=== PATIENT | female | born 1965 | race American Indian/Alaskan Native ===

== ENCOUNTER 2019-09-11 13:00 | Emergency (ER) | payer MEDICARE ==
[2019-09-11] MEDS ORDERED: traMADol 50 MG TAB PO ONE (14:14)
--- NOTE | 2019-09-11 14:53 | XRay Report ---
LEFT FOOT, 3 VIEWS INDICATION / CLINICAL INFORMATION: foot pain. COMPARISON: None available. FINDINGS: Mild hallux valgus deformity with mild associated degenerative change. No fracture or dislocation. No additional degenerative change. No calcaneal spurring. Fracture does appear to be some mild soft tis rob swelling along the dorsum of the midfoot which is nonspecific. IMPRESSION: 1. Mild dorsal soft tissue swelling of the mid foot region. Please correlate clinically. This is nons pecific radiographically. 2. No fracture OR dislocation. 3. Mild hallux valgus deformity noted. Signer Name: Helena Harmon MD Signed: 09/11/2019 2:49 PM Workstation Name: [id number]
--- NOTE | 2019-09-11 16:20 | Emergency Department Report ---
ED Lower Extremity HPI - General Chief Complaint: Extremity Problem,Nontraumatic Stated Complaint: LEFT FOOT SWELLING Time Seen by Provider: 09/11/19 14:15 Source: patient Mode of arrival: Ambulatory Limitations: No Limitations - History of Present Illness Initial Comments: Patient presents for left dorsal foot pain x3 weeks. Denies fall injury or trauma. However there is swelling and moderate erythema. Patient denies history of gout or arthritis. Patient remains ambulatory with slight disturbance, there is no numbness or deformity. MD Complaint: foot injury Onset/Timin -: week(s) Injury: Foot: Left - Related Data Previous Rx's Medication Instructions Recorded Last Taken Type Naproxen 500 mg PO BID PRN #30 tablet 09/11/19 Unknown Rx Allergies Allergy/AdvReac Type Severity Reaction Status Date / Time No Known Allergies Allergy Unverified 09/11/19 13:06 ED Review of Systems ROS: Stated complaint: LEFT FOOT SWELLING Other details as noted in HPI Constitutional: denies: chills, fever Eyes: denies: eye pain, eye discharge, vision change ENT: denies: ear pain, throat pain Respiratory: denies: cough, shortness of breath, wheezing Cardiovascular: denies: chest pain, palpitations Endocrine: no symptoms reported Gastrointestinal: denies: abdominal pain, nausea, diarrhea Genitourinary: denies: urgency, dysuria, discharge Musculoskeletal: other (left dorsal foot pain ). denies: back pain, joint swelling, arthralgia Skin: denies: rash, lesions Neurological: denies: headache, weakness, paresthesias Psychiatric: denies: anxiety, depression Hematological/Lymphatic: as per HPI ED Past Medical Hx - Past Medical History Previous Medical History?: Yes Hx Hypertension: Yes - Surgical History Past Surgical History?: No - Social History Smoking Status: Unknown if ever smoked Substance Use Type: None - Medications Home Medications: Home Medications Medication Instructions Recorded Confirmed Last Taken Type Naproxen 500 mg PO BID PRN #30 tablet 09/11/19 Unknown Rx ED Physical Exam - General Limitations: No Limitations General appearance: alert, in no apparent distress - Head Head exam: Present: atraumatic, normocephalic - Eye Eye exam: Present: normal appearance - ENT ENT exam: Present: mucous membranes moist - Neck Neck exam: Present: normal inspection - Respiratory Respiratory exam: Present: normal lung sounds bilaterally. Absent: respiratory distress - Cardiovascular Cardiovascular Exam: Present: regular rate, normal rhythm. Absent: systolic murmur, diastolic murmur, rubs, gallop - GI/Abdominal GI/Abdominal exam: Present: soft, normal bowel sounds - Rectal Rectal exam: Present: deferred - Extremities Exam Extremities exam: Present: full ROM, tenderness (left dorsal foot ), normal capillary refill. Absent: pedal edema, joint swelling, calf tenderness - Expanded Lower Extremity Exam Left Foot/Toe exam: Present: full ROM, tenderness, swelling, erythema. Absent: abrasion, laceration, ecchymosis, deformity, crepidus, dislocation, amputation, puncture wound, foreign body, calcaneal tenderness, tenderness at base of 5th metatarsal, nail avulsion, subungual hematoma Neuro vascular tendon exam: Absent: pulse deficit, motor deficit, sensory deficit, tendon deficit Gait: Positive: observed and limited by pain - Back Exam Back exam: Present: normal inspection, full ROM. Absent: tenderness - Neurological Exam Neurological exam: Present: alert, oriented X3, CN II-XII intact, normal gait, reflexes normal. Absent: motor sensory deficit - Expanded Neurological Exam Expanded Patient oriented to: Present: person, place, time Motor strength exam: RLE: 5, LLE: 5 Best Eye Response (Bon): (4) open spontaneously Best Motor Response (Mosinee): (6) obeys commands Best Verbal Response (Mosinee): (5) oriented [place] Total: 15 - Psychiatric Psychiatric exam: Present: normal affect, normal mood - Skin Skin exam: Present: warm ED Lower Extremity MDM - Radiology Data Radiology results: report reviewed, image reviewed no fracture, mild dorsal foot swelling, mild halux valgus - Medical Decision Making X-ray demonstrates 0 fracture. Mild hallux valgus. Plan NSAIDs follow-up with podiatry in 2 to 3 days patient verbalizes agreement understanding of discharge plan. Patient be DC'd home stable condition at this time. Critical care attestation.: If time is entered above; I have spent that time in minutes in the direct care of this critically ill patient, excluding procedure time. ED Disposition Clinical Impression: Foot sprain Qualifiers: Encounter type: initial encounter Laterality: left Qualified Code(s): S93.602A - Unspecified sprain of left foot, initial encounter Disposition: DC-01 TO HOME OR SELFCARE Is pt being admited?: No Does the pt Need Aspirin: No Condition: Stable Instructions: Foot Sprain (ED) Prescriptions: Naproxen 500 mg PO BID PRN #30 tablet PRN Reason: Pain Referrals: MAXIMINO ROSALES MD [Primary Care Provider] - 3-5 Days Forms: Work/School Release Form(ED) Time of Disposition: 16:25
[2019-09-11] MEDS ORDERED: traMADol 50 MG TAB ONE ×2 (16:22→16:32)
== END 2019-09-11 16:36 | disposition home or self-care (01) ==
LOC: ED 13:00
DX: S93.602A Unspecified sprain of left foot, initial encounter (principal); I10 Essential (primary) hypertension; Z79.899 Other long term (current) drug therapy; X58.XXXA Exposure to other specified factors, initial encounter; Y93.89 Activity, other specified; Y92.89 Other specified places as the place of occurrence of the external cause; Y99.8 Other external cause status

== ENCOUNTER 2020-02-02 12:28 | Emergency (ER) | payer MEDICARE ==
[2020-02-02 13:22] VITALS: BP 157/94
[2020-02-02] MEDS ORDERED: ACETAMINOPHEN 325 MG TAB PO ONE (13:35)
--- NOTE | 2020-02-02 13:35 | Event Note ---
ED Screening Note Date of service: 02/02/20 Time: 13:33 ED Screening Note: 54-year-old -Taj[place] female presents to the emergency room complaining of neck pain head pain and left arm pain with generalized pain everywhere status post fall today at [employer] proximal a little bit after 11. Patient denies any urinary bowel incontinence. She denies any loss of consciousness no nausea no vomiting. This initial assessment/diagnostic orders/clinical plan/treatment(s) is/are subject to change based on patients health status, clinical progression and re- assessment by fellow clinical providers in the ED. Further treatment and workup at subsequent clinical providers discretion. Patient/guardian urged not to elope from the ED as their condition may be serious if not clinically assessed and managed. Initial orders include:
--- NOTE | 2020-02-02 15:31 | Cat Scan Report ---
CT HEAD WITHOUT CONTRAST INDICATION / CLINICAL INFORMATION: fall head injury. TECHNIQUE: Axial imaging performed from the skull apex through the skull base without the use of cont rast. Sagittal and coronal reformatted images. All CT scans at this location are performed using CT dose reduction for ALARA by means of automated exposure control. COMPARISON: None available. FINDINGS: CEREBRAL PARENCHYMA: No acute parenchymal abnormality. Chronic 1.2 cm infarct in the right anterior b bettye ganglia is noted. HEMORRHAGE: None. EXTRA-AXIAL SPACES: Normal in size and morphology for the patient's age. VENTRICULAR SYSTEM: Normal in size and morphology for the patient's age. MIDLINE SHIFT OR HERNIATION: None. CEREBELLUM / BRAINSTEM: No significant abnormality. CALVARIUM: No significant abnormality. ORBITS: Normal as visualized. PARANASAL SINUSES / MASTOID AIR CELLS: Normal as visualized. SOFT TISSUES of HEAD: No significant abnormality. ADDITIONAL FINDINGS: None. IMPRESSION: No acute intracranial abnormality. 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 CT CERVICAL SPINE WITHOUT CONTRAST HISTORY: Neck pain, injury COMPARISON: None TECHNIQUE: CT images of the cervical spine were obtained without contrast. Sagittal and coronal refo rmats were post-processed. CONTRAST: None. FINDINGS: Alignment: Normal. There is mild reversal of the normal cervical lordosis which could be positional o r secondary to muscular spasm. Vertebrae:No significant abnormality. Disc Spaces: Moderate disc space narrowing and marginal spurring is identified at all levels. Facet Joints:No significant abnormality. Craniocervical Junction:No significant abnormality. Prevertebral Soft Tissues:No significant abnormality. Lung Apices: No significant abnormality. Additional Findings: None IMPRESSION: Moderate multilevel cervical spondylosis. No acute injury is identified. Signer Name: Bill Minor Jr, MD Signed: 02/02/2020 3:27 PM Workstation Name: [id number]
--- NOTE | 2020-02-02 15:32 | XRay Report ---
LUMBOSACRAL SPINE 3 VIEWS INDICATION: fall with lower back pain. COMPARISON: None. IMPRESSION: Mild osteopenia is suspected. Normal alignment. No significant discogenic DJD or facet a rthropathy. No acute osseous or soft tissue abnormality. Signer Name: Bill Minor Jr, MD Signed: 02/02/2020 3:28 PM Workstation Name: [id number]
[2020-02-02] MEDS ORDERED: traMADol 50 MG TAB PO ONE (16:25)
[2020-02-02] MEDS ORDERED: CYCLOBENZAPRINE 10 MG TAB PO ONE (16:25)
--- NOTE | 2020-02-02 16:29 | Emergency Department Report ---
ED Fall HPI - General Chief Complaint: Fall Stated Complaint: FALL FROM STANDING POSITION Time Seen by Provider: 02/02/20 16:17 Source: patient, EMS Mode of arrival: Wheelchair Limitations: No Limitations - History of Present Illness Initial Comments: Patient is a 54-year-old -[place] female who comes to the ER status post ground-level fall at the [employer]. She states that she was walking and slipped and fell. She had no prodrome of symptoms. She denies any neurological symptoms. Denies any headache. Denies any chest pain or shortness of breath leading up to the fall. She was in her usual state of health at that time. Patient presents to the ER complaining of generalized pain. She told the triage staff that she had generalized back pain. When she got back to [facility] she added that her left elbow is hurting. Additional imaging has been ordered. 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 denies: numbness, weakness, chest paint, shortness of breath, abdominal pain, hematuria, unable to walk, lightheaded, vertigo, confusion - Related Data Previous Rx's Medication Instructions Recorded Last Taken Type Naproxen 500 mg PO BID PRN #30 tablet 09/11/19 Unknown Rx Cyclobenzaprine [Flexeril] 10 mg PO TID PRN #10 tablet 02/02/20 Unknown Rx Ibuprofen [Motrin] 800 mg PO Q8HR PRN #30 tablet 02/02/20 Unknown Rx Allergies Allergy/AdvReac Type Severity Reaction Status Date / Time No Known Allergies Allergy Unverified 09/11/19 13:06 ED Review of Systems ROS: Stated complaint: FALL FROM STANDING POSITION Other details as noted in HPI Comment: All other systems reviewed and negative ED Past Medical Hx - Past Medical History Previous Medical History?: Yes Hx Hypertension: Yes - Surgical History Past Surgical History?: No - Family History Family history: no significant - Social History Smoking Status: Current Some Day Smoker Substance Use Type: None - Medications Home Medications: Home Medications Medication Instructions Recorded Confirmed Last Taken Type Naproxen 500 mg PO BID PRN #30 tablet 09/11/19 Unknown Rx Cyclobenzaprine [Flexeril] 10 mg PO TID PRN #10 tablet 02/02/20 Unknown Rx Ibuprofen [Motrin] 800 mg PO Q8HR PRN #30 tablet 02/02/20 Unknown Rx ED Physical Exam - General Limitations: No Limitations General appearance: alert, in no apparent distress - Head Head exam: Present: atraumatic, normocephalic - Eye Eye exam: Present: normal appearance, PERRL, EOMI - ENT ENT exam: Present: mucous membranes moist - Neck Neck exam: Present: normal inspection - Respiratory Respiratory exam: Present: normal lung sounds bilaterally. Absent: respiratory distress - Cardiovascular Cardiovascular Exam: Present: regular rate, normal rhythm. Absent: systolic murmur, diastolic murmur, rubs, gallop - GI/Abdominal GI/Abdominal exam: Present: soft, normal bowel sounds - Rectal Rectal exam: Present: deferred - Extremities Exam Extremities exam: Present: full ROM, normal capillary refill, other (co pain with extending left arm). Absent: tenderness - Back Exam Back exam: Present: normal inspection, full ROM. Absent: tenderness - Neurological Exam Neurological exam: Present: alert, oriented X3, CN II-XII intact, normal gait. Absent: abnormal gait, motor sensory deficit, reflexes normal - Expanded Neurological Exam Expanded Patient oriented to: Present: person, place, time Speech: Present: fluid speech Cranial nerves: EOM's Intact: Normal, Gag Reflex: Normal, Facial Sensation: Normal Cerebellar function: Finger to Nose: Normal Upper motor neuron: Pronator Drift: Normal Sensory exam: Upper Extremity Light Touch: Normal, Lower Extremity Light Touch: Normal Motor strength exam: RUE: 5, LUE: 5, RLE: 5, LLE: 5 Best Eye Response (Bon): (4) open spontaneously Best Motor Response (Bon): (6) obeys commands Best Verbal Response (Bon): (5) oriented Bon Total: 15 - Psychiatric Psychiatric exam: Present: normal affect, normal mood. Absent: depressed, agitated - Skin Skin exam: Present: warm, dry, intact, normal color. Absent: rash ED Course Vital Signs 02/02/20 12:43 Temperature 98.0 F Pulse Rate 71 Respiratory 18 Rate Blood Pressure 157/94 O2 Sat by Pulse 100 Oximetry ED Medical Decision Making - Radiology Data Radiology results: report reviewed, image reviewed nap Prior basal ganglia infarct noted as per radiology. - Medical Decision Making Vital Signs 02/02/20 12:43 Temperature 98.0 F Pulse Rate 71 Respiratory 18 Rate Blood Pressure 157/94 O2 Sat by Pulse 100 Oximetry Imaging noted. I have discussed with Dr. Devyn Beebe the CT findings.. Patient had no prodrome of symptoms. She has no prior history of CVA or TIA. Patient does have hypertension for which she does not always take her lisinopril. Patient does have a primary care physician. Patient is very clear and was asked on 2 occasions about her fall. Is a mechani marianela witnessed fall. She had no prodrome of symptoms. She is neurologically intact with no focal deficit in the emergency room. She has been ambulating ambulating without difficulty. I have discussed the incidental finding with the patient. I explained to her that she will need to take an aspirin daily and follow-up with her primary care regarding this CT. On reexam the patient is again neurologically intact with no focal deficit. I have educated the patient that she needs to take her blood pressure medicine daily as instructed by her primary care and that if she is not tolerating the medication she needs to discuss this with the primary care who will make the needed changes. Patient verbalizes an understanding of our discussion. Patient has been medicated for discomfort status post her ground-level mechanical fall. She reports relief with the medication. Patient being discharged home with detailed follow-up instructions including diet, activity, medications and follow-up. She verbalizes understanding. - Differential Diagnosis ro fx v muscle injury sp fall Critical care attestation.: If time is entered above; I have spent that time in minutes in the direct care of this critically ill patient, excluding procedure time. ED Disposition Clinical Impression: Fall, Contusion, Accident due to mechanical fall without injury Disposition: DC-01 TO HOME OR SELFCARE Is pt being admited?: No Does the pt Need Aspirin: No Condition: Stable Additional Instructions: Medications as ordered today. Activity as tolerated. Warm baths and compresses Follow-up with primary care Continue your home medications including your lisinopril and a daily aspirin Low-salt diet. Stay well-hydrated. Please tell your primary care doctor that she can get your medical records from the ER including your CT scan of your head which we have discussed. Prescriptions: Cyclobenzaprine [Flexeril] 10 mg PO TID PRN #10 tablet PRN Reason: Muscle Spasm Ibuprofen [Motrin] 800 mg PO Q8HR PRN #30 tablet PRN Reason: Pain, Moderate (4-6) Referrals: MAXIMINO ROSALES MD [Primary Care Provider] - 3-5 Days Time of Disposition: 16:29
--- NOTE | 2020-02-02 16:49 | XRay Report ---
LEFT ELBOW 3 VIEWS INDICATION / CLINICAL INFORMATION: fall left elbow pain COMPARISON: None available. FINDINGS: BONES / JOINT(S): No acute fracture or subluxation. No significant arthritis. SOFT TISSUES: No significant abnormality. ADDITIONAL FINDINGS: None. Signer Name: Evert Arboleda MD Signed: 02/02/2020 4:45 PM Workstation Name: [id number]
== END 2020-02-02 17:46 | disposition home or self-care (01) ==
LOC: ED 12:28
DX: S00.93XA Contusion of unspecified part of head, initial encounter (principal); I10 Essential (primary) hypertension; F17.200 Nicotine dependence, unspecified, uncomplicated; Z79.1 Long term (current) use of non-steroidal anti-inflammatories (NSAID); Z79.899 Other long term (current) drug therapy; W18.30XA Fall on same level, unspecified, initial encounter; Y93.89 Activity, other specified; Y92.89 Other specified places as the place of occurrence of the external cause; Y99.8 Other external cause status
CPT/HCPCS: 70450; 72100; 72125

== ENCOUNTER 2020-09-09 08:04 | Emergency (ER) | payer MEDICARE ==
--- NOTE | 2020-09-09 09:47 | Emergency Department Report ---
ED General Adult HPI - General Chief complaint: Dyspnea/Respdistress Stated complaint: CONSTANT COUGHING Time Seen by Provider: 09/09/20 09:37 Source: patient Mode of arrival: Ambulatory Limitations: No Limitations - History of Present Illness Initial comments: 54-year-old -[place] female presents to the emergency room complaining of a cough that she has had for 2 weeks. Patient states that she has a history of coughing for almost a year in the past. Patient denies any fever chills or nausea no vomiting no chest pain or shortness of breath. Patient does report she is on lisinopril for her hypertension. Patient states she does have a primary care provider but the doctors in [place] and she has not been able to make her appointment. Onset/Timin -: week(s), year(s) (Ovary a year for chronic cough) Severity scale (0 -10): 8 Consistency: constant Improves with: none Worsens with: none Associated Symptoms: denies other symptoms, cough. denies: diaphoresis, fever/chills Treatments Prior to Arrival: other (OTC cough medications) - Related Data Previous Rx's Medication Instructions Recorded Last Taken Type Naproxen 500 mg PO BID PRN #30 tablet 09/11/19 Unknown Rx Cyclobenzaprine [Flexeril] 10 mg PO TID PRN #10 tablet 02/02/20 Unknown Rx Ibuprofen [Motrin] 800 mg PO Q8HR PRN #30 tablet 02/02/20 Unknown Rx amLODIPine 5 mg PO DAILY 1 Days #30 tab 09/09/20 Unknown Rx Allergies Allergy/AdvReac Type Severity Reaction Status Date / Time No Known Allergies Allergy Unverified 09/11/19 13:06 ED Review of Systems ROS: Stated complaint: CONSTANT COUGHING Other details as noted in HPI Comment: All other systems reviewed and negative ED Past Medical Hx - Past Medical History Previous Medical History?: Yes Hx Hypertension: Yes - Surgical History Past Surgical History?: No - Social History Smoking Status: Current Some Day Smoker Substance Use Type: None - Medications Home Medications: Home Medications Medication Instructions Recorded Confirmed Last Taken Type Naproxen 500 mg PO BID PRN #30 tablet 09/11/19 Unknown Rx Cyclobenzaprine [Flexeril] 10 mg PO TID PRN #10 tablet 02/02/20 Unknown Rx Ibuprofen [Motrin] 800 mg PO Q8HR PRN #30 tablet 02/02/20 Unknown Rx amLODIPine 5 mg PO DAILY 1 Days #30 tab 09/09/20 Unknown Rx ED Physical Exam - General Limitations: No Limitations General appearance: alert, in no apparent distress - Head Head exam: Present: atraumatic, normocephalic - Eye Eye exam: Present: normal appearance - ENT ENT exam: Present: mucous membranes dry - Neck Neck exam: Present: normal inspection, full ROM - Respiratory Respiratory exam: Present: normal lung sounds bilaterally. Absent: respiratory distress, wheezes, rales, rhonchi, chest wall tenderness, accessory muscle use - Cardiovascular Cardiovascular Exam: Present: regular rate, normal rhythm - Extremities Exam Extremities exam: Present: normal inspection, full ROM - Back Exam Back exam: Present: normal inspection - Neurological Exam Neurological exam: Present: alert, oriented X3, normal gait - Psychiatric Psychiatric exam: Present: normal affect, normal mood - Skin Skin exam: Present: warm, dry, intact, normal color. Absent: rash ED Course Vital Signs 09/09/20 08:47 Temperature 98.3 F Pulse Rate 78 Respiratory 18 Rate Blood Pressure 150/88 [Right] O2 Sat by Pulse 99 Oximetry ED Medical Decision Making - Medical Decision Making 54-year-old -[place] female presents to the emergency room complaining of a cough that she has had for 2 weeks. Patient states that she has a history of coughing for almost a year in the past. Patient denies any fever chills or nausea no vomiting no chest pain or shortness of breath. Patient does report she is on lisinopril for her hypertension. Patient states she does have a primary care provider but the doctors in [place] and she has not been able to make her appointment. Patient is actively coughing during my exam. I discussed with patient that this chronic cough could be from her lisinopril since is the KYLIE inhibitor. I discussed with patient to discontinue the lisinopril start amlodipine 5 mg. Discussed with patient I will refer her to her primary care provider that close to her home. Patient verbalized understanding Critical care attestation.: If time is entered above; I have spent that time in minutes in the direct care of this critically ill patient, excluding procedure time. ED Disposition Clinical Impression: Cough due to angiotensin-converting enzyme inhibitor, HTN (hypertension) Disposition: - TO HOME OR SELFCARE Is pt being admited?: No Does the pt Need Aspirin: No Condition: Stable Instructions: Cough, Adult, [id number], Hypertension (ED) Additional Instructions: Discontinue taking lisinopril. I would like for you to start taking amlodipine 5 mg daily and to follow-up with a primary care provider that is close by. I have listed 1 below for your convenience. Prescriptions: amLODIPine 5 mg PO DAILY 1 Days #30 tab Referrals: PHILLIP THOMPSON MD [Staff Physician] - 3-5 Days Forms: Work/School Release Form(ED) Time of Disposition: 09:47
[2020-09-09 10:10] VITALS: BP 148/83
== END 2020-09-09 10:09 | disposition home or self-care (01) ==
LOC: ED 08:04
DX: R05 Cough (principal); T44.5X5A Adverse effect of predominantly beta-adrenoreceptor agonists, initial encounter; I10 Essential (primary) hypertension; F17.200 Nicotine dependence, unspecified, uncomplicated; Z79.1 Long term (current) use of non-steroidal anti-inflammatories (NSAID); Z79.899 Other long term (current) drug therapy; Y92.89 Other specified places as the place of occurrence of the external cause
CPT/HCPCS: 99282